=== PATIENT | male | born 1970 | race Two or more races ===

== ENCOUNTER 2017-05-20 18:26 | Emergency (ER) | payer SELFPAY ==
[~2017-05-20] VITALS: Ht 182.9 cm; Wt 133.2 kg
[2017-05-20 18:31] VITALS: BP 156/84
[2017-05-20] MEDS ORDERED: PROPARACAINE OPHTH 0.5%, 15ML ONE (18:52)
[2017-05-20] MEDS ORDERED: FLUORESCEIN OPHTHALMIC 1 MG STRIP ONE (18:52)
[2017-05-20] MEDS ORDERED: PROPARACAINE OPHTH 0.5%, 15ML EACHEYE ONE (19:00)
[2017-05-20] MEDS ORDERED: FLUORESCEIN OPHTHALMIC 1 MG STRIP EACHEYE ONE (19:00)
[2017-05-20] MEDS ORDERED: CIPROFLOXACIN OPHTH SOLN 0.3%, 5ML LEFTEYE ONE (19:30)
== END 2017-05-20 20:09 | disposition home or self-care (01) ==
LOC: ED 20:03
DX: T15.02XA Foreign body in cornea, left eye, initial encounter (principal)
CPT/HCPCS: 99283; 99284

== ENCOUNTER 2018-06-12 13:37 | Emergency (ER) | payer OTHER ==
[~2018-06-12] VITALS: Ht 182.9 cm; Wt 126.6 kg
[2018-06-12 14:53] LABS: ALBUMIN 2.9 g/dL (3.4-5.0); ANION GAP 6 mmol/L (5-15); CALCIUM 9.3 mg/dL (8.5-10.1); CHLORIDE 107 mmol/L (98-107); CREATININE 1.39 mg/dL (0.7-1.3)
[2018-06-12 15:07] LABS: BASOPHILS # (AUTO) 0.05 x10^3/uL (0-0.1); BASOPHILS % (AUTO) 0 % (0-1); EOSINOPHILS # (AUTO) 0.24 x10^3/uL (0-0.4); EOSINOPHILS % (AUTO) 2 % (1-7); LYMPHOCYTES # (AUTO) 2.12 x10^3/uL (1-3.4); LYMPHOCYTES % (AUTO) 19 % (22-44); MD NO; MEAN CORPUSCULAR HEMOGLOBIN 29.7 pg (27.5-34.5); MEAN CORPUSCULAR VOLUME 87.5 fL (81-97); MEAN PLATELET VOLUME 8.4 fL (7.4-10.4); MONOCYTES # (AUTO) 0.78 x10^3/uL (0.2-0.8); MONOCYTES % (AUTO) 7 % (2-9); NEUTROPHILS # (AUTO) 7.76 x10^3/uL (1.8-6.8); NEUTROPHILS % (AUTO) 71 % (42-75); PLATELET COUNT 340 x10^3/uL (130-400); RED BLOOD COUNT 4.89 x10^6/uL (4.38-5.82); RED CELL DISTRIBUTION WIDTH 14.2 % (9.4-14.8)
[2018-06-12 15:28] VITALS: BP 113/74
== END 2018-06-12 15:35 | disposition home or self-care (01) ==
LOC: ED 14:00
DX: K59.00 Constipation, unspecified (principal); I12.9 Hypertensive chronic kidney disease with stage 1 through stage 4 chronic kidney disease, or unspecified chronic kidney disease; N18.9 Chronic kidney disease, unspecified; K21.9 Gastro-esophageal reflux disease without esophagitis; Z90.49 Acquired absence of other specified parts of digestive tract
CPT/HCPCS: 36415; 74018; 80048; 82040; 85025; 99285

== ENCOUNTER 2019-09-28 20:19 | Emergency (ER) | payer OTHER ==
[~2019-09-28] VITALS: Ht 182.9 cm; Wt 139.0 kg
[2019-09-28] MEDS ORDERED: HYDROcodone/APAP 5/325 TABLET PO ONE (21:30)
[2019-09-28] MEDS ORDERED: KETOROLAC 30 MG/1 ML IM ONE (21:30)
[2019-09-28] MEDS ORDERED: DIAZEPAM 5 MG TABLET PO ONE (21:30)
[2019-09-28] MEDS ORDERED: KETOROLAC 30 MG/1 ML ONE (21:36)
[2019-09-28] MEDS ORDERED: DIAZEPAM 5 MG TABLET ONE (21:36)
[2019-09-28] MEDS ORDERED: HYDROcodone/APAP 5/325 TABLET ONE (21:36)
[2019-09-28 22:09] VITALS: BP 138/98
== END 2019-09-28 22:11 | disposition home or self-care (01) ==
LOC: ED 21:50
DX: S39.012A Strain of muscle, fascia and tendon of lower back, initial encounter (principal); K21.9 Gastro-esophageal reflux disease without esophagitis; I10 Essential (primary) hypertension; Z90.49 Acquired absence of other specified parts of digestive tract; X58.XXXA Exposure to other specified factors, initial encounter; Y93.89 Activity, other specified; Y92.89 Other specified places as the place of occurrence of the external cause; Y99.8 Other external cause status
CPT/HCPCS: 72110; 96372; 99283; J1885

== ENCOUNTER 2020-01-21 16:57 | Emergency (ER) | payer MEDICAID ==
[~2020-01-21] VITALS: Ht 182.9 cm; Wt 136.7 kg
[~2020-01-21 16:57] MED LIST: CELE50CA PO; GABA600T7 PO; LIDO1ADH73 TP; MELO7.5T31 PO
[2020-01-21] MEDS ORDERED: LORazepam 2 MG/ML, 1ML ONE (17:54)
[2020-01-21] MEDS ORDERED: LORazepam 2 MG/ML, 1ML IM ONE (18:00)
--- NOTE | 2020-01-21 18:01 | NUR ---
pt to mri.
--- NOTE | 2020-01-21 18:41 | NUR ---
RETURNED FROM CT
[2020-01-21 18:42] VITALS: BP 2/103
--- NOTE | 2020-01-21 18:46 | NUR ---
talking with pt about MRI results and answering questions from the patient
--- NOTE | 2020-01-21 18:53 | NUR ---
Report to Alondra CARRENO
--- NOTE | 2020-01-21 19:16 | NUR ---
Patient/Caregiver given discharge instructions and they have confirmed that they understand the instructions. Patient ambulatory with steady gait.
== END 2020-01-21 19:18 | disposition home or self-care (01) ==
LOC: ED 17:47
DX: F07.81 Postconcussional syndrome (principal); I10 Essential (primary) hypertension; K21.9 Gastro-esophageal reflux disease without esophagitis; R00.0 Tachycardia, unspecified; Z90.49 Acquired absence of other specified parts of digestive tract
CPT/HCPCS: 70551; 93005; 96372; 99284; J2060